=== PATIENT | female | born 1935 | race Caucasian/White ===

== ENCOUNTER 2022-03-12 09:29 | Outpatient (CLI) | payer MEDICARE, OTHER, SELFPAY ==
--- NOTE | 2022-03-12 09:45 | MR_ITS ---
WS: [id number] MRI LUMBAR SPINE NONCONTRAST TECHNIQUE: Sagittal T1, T2 and STIR imaging. Axial T1 and T2 imaging. CLINICAL INFORMATION: CHRONIC MIDLINE LOW BACK PAIN COMPARISON: None. FINDINGS: Mild lumbar curve. No acute compression. Slight anterolisthesis L3 on L4. Disc space narrowing worse L4-L5. Incidental hemangioma L3 vertebral body. L1-L2: Mild disc bulging and osteophytic ridging. Slight narrowing of the RIGHT subarticular recess. Mild facet arthropathy. RIGHT foraminal protrusion with mild RIGHT foraminal narrowing. LEFT foramen is patent. L2-L3: Mild disc bulging with moderate central canal stenosis. Impingement subarticular recess bilate rally. Moderate facet arthropathy. Small bilateral foraminal protrusions with moderate RIGHT and mild LEFT foraminal narrowing. L3-L4: Slight anterolisthesis L3 on L4. Disc bulging combination with facet arthropathy results in mo derate central canal stenosis. Impingement on the traversing L4 nerve roots bilaterally. Small LEFT f oraminal protrusion with moderate LEFT foraminal narrowing. RIGHT foramen is patent. Moderate facet a rthropathy. L4-L5: Disc osteophyte complex with endplate ridging. Slight retrolisthesis L4 on L5. Slight impingem ent traversing LEFT L5 nerve root in the subarticular recess. Mild RIGHT foraminal narrowing. Mild fa cet arthropathy. L5-S1: No significant disc bulging. Spinal canal foramen are patent. Mild facet arthropathy. Small amount of nonspecific edema in the superior S3 vertebral body may be posttraumatic or degenerat lopez versus small hemangioma. MR/MR lumbar spine wo con* [id number] IMPRESSION: 1. Mild lumbar curve. No acute compression. Grade 1 anterolisthesis L2 on L3 a nd L3 on L4. 2. Moderate central canal stenosis L2-L3 and L3-L4 due to disc bulging with fa cet arthropathy and mild ligamentum flavum flavum hypertrophy. Impingement on t he traversing L3 and L4 nerve roots bilaterally. 3. Impingement on the traversing LEFT L5 nerve root in the LEFT subarticular r ecess L4-L5. 4. Mild disc bulging L1-L2 with a shallow central protrusion and mild central canal stenosis. 5. Small foraminal protrusions at RIGHT L2-L3 and LEFT L3-L4 with impingement on the exiting RIGHT L2 and LEFT L3 nerve roots respectively. 6. Mild RIGHT L1-L2 foraminal narrowing with a small RIGHT foraminal protrusio n.
== END 2022-03-12 09:30 | disposition home or self-care (01) ==
LOC: RAD 09:40
PROVIDERS: Visit Provider Orthopaedic Surgery
DX: M48.061 Spinal stenosis, lumbar region without neurogenic claudication (principal); M54.50 Low back pain, unspecified
CPT/HCPCS: 72148

== ENCOUNTER 2022-05-01 13:06 | Outpatient (CLI) | payer MEDICARE, OTHER, SELFPAY ==
--- NOTE | 2022-05-01 13:20 | XR_ITS ---
WS: [id number] Lumbar spine with flexion, extension, and neutral lateral, 05/01/2022 Clinical Data: SPONDYLOLISTHESIS, LUMBAR REGION Comparison: None. Findings: No compression fractures are seen. Degenerative disc narrowing exists at all levels but especially at L1-L2, L2-L3 and L4-L5 with loss of the normal lordotic curvature. There is a subluxation of 0.4 cm of L3 on L4 which increases on flexion to 0.6 cm. There is limitation of motion on flexion and exten niki. There are striations in the L3 vertebral body consistent with an hemangioma. There is osteoarth ritic change of all the lumbar vertebral bodies. There are clips in the upper abdomen from surgery. There is calcification in the abdominal aorta with out an aneurysm. There is a hip arthroplasty. XR/XR lumbar spine f/e only [id number] Impression: 1. Degenerative disc narrowing at multiple levels with loss of normal lordotic curvature. 2. 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 3. Subluxation of 0.4 cm at L3-L4 which increases to 0.6 cm on flexion.
== END 2022-05-01 13:07 | disposition home or self-care (01) ==
LOC: RAD 13:07
PROVIDERS: Visit Provider Nurse Practitioner
DX: M43.16 Spondylolisthesis, lumbar region (principal)
CPT/HCPCS: 72120

== ENCOUNTER 2022-05-09 15:42 | Outpatient (CLI) | payer MEDICARE, OTHER, SELFPAY ==
--- NOTE | 2022-05-09 16:08 | XR_ITS ---
WS: [id number] Exam: XR ribs RT mn 3V w CXR1V [id number] Date/Time of Exam: 05/09/2022 4:09 PM Reason For Exam: RT. RIB FRACTURE Chest radiograph compared to the last exam 05/23/2016. No acute right rib fracture. The lungs are bilaterally clear and hyperinflated. Normal cardiomediasti nal silhouette. No pleural or pulmonary reactive changes. No pleural effusions. Advanced DJD of both shoulders. Mild lower thoracic levoscoliosis. XR/XR ribs RT mn 3V w CXR1V [id number] IMPRESSION: 1. No acute rib fracture or pneumothorax. 2. Pulmonary hyperinflation which might indicate obstructive lung disease. No a cute cardiopulmonary finding.
== END 2022-05-09 15:43 | disposition home or self-care (01) ==
LOC: RAD 15:45
PROVIDERS: PCP Family Medicine; Visit Provider Anesthesiology Pain Medicine
DX: S22.31XA Fracture of one rib, right side, initial encounter for closed fracture (principal); X58.XXXA Exposure to other specified factors, initial encounter
CPT/HCPCS: 71101

== ENCOUNTER → 2023-01-02 15:10 | Outpatient (BNVA) | payer MEDICARE, OTHER, SELFPAY | PROVIDERS: PCP Family Medicine; Visit Provider Family Medicine | DX: N39.0 Urinary tract infection, site not specified (principal) | CPT/HCPCS: 81003 ==

== ENCOUNTER → 2023-02-28 10:14 | Outpatient (BNVA) | payer MEDICARE, OTHER, SELFPAY | PROVIDERS: PCP Family Medicine; Visit Provider Family Medicine | DX: E03.9 Hypothyroidism, unspecified (principal); E78.5 Hyperlipidemia, unspecified; E11.9 Type 2 diabetes mellitus without complications; Z13.6 Encounter for screening for cardiovascular disorders | CPT/HCPCS: 80053; 80061; 83036; 84443; 85025 ==

== ENCOUNTER → 2024-04-27 10:54 | Outpatient (BNVA) | payer MEDICARE, OTHER, SELFPAY | PROVIDERS: PCP Family Medicine; Visit Provider Family Medicine | DX: R13.10 Dysphagia, unspecified (principal); K64.9 Unspecified hemorrhoids; E11.9 Type 2 diabetes mellitus without complications; I25.10 Atherosclerotic heart disease of native coronary artery without angina pectoris; Z79.899 Other long term (current) drug therapy | CPT/HCPCS: 80053; 80061; 83036; 84443; 85025 ==

== ENCOUNTER 2024-09-22 09:24 | Outpatient (CLI) | payer MEDICARE, OTHER, SELFPAY ==
--- NOTE | 2024-09-22 09:31 | XR_ITS ---
WS: [id number] XR hip BI 2V wo/w pel [id number] REASON FOR EXAM: fall FINDINGS: RIGHT HIP: Total right hip arthroplasty. Prosthetic components are intact and in proper position and alignment. Femoral shaft intact at the di stal end of the femoral prosthetic component. Superior and inferior pubic rami intact. XR/XR hip BI 2V wo/w pel [id number] IMPRESSION: Total right hip arthroplasty without acute abnormality. LEFT HIP: No acute fracture of the acetabulum and or femoral head/neck. Possible old healed fracture of the inferior pubic ramus. No acute fracture of the superior or inferior pubic ramus identified. Mild to moderate osteoarthritis. IMPRESSION: No acute abnormality of the left hip.
== END 2024-09-22 09:25 | disposition home or self-care (01) ==
PROVIDERS: PCP Family Medicine; Visit Provider Family Medicine
DX: M16.12 Unilateral primary osteoarthritis, left hip (principal)
CPT/HCPCS: 73521

== ENCOUNTER → 2025-09-27 15:02 | Outpatient (BNVA) | payer MEDICARE, OTHER, SELFPAY | PROVIDERS: PCP Family Medicine; Visit Provider Family Medicine | DX: E11.9 Type 2 diabetes mellitus without complications (principal); R13.10 Dysphagia, unspecified; I25.10 Atherosclerotic heart disease of native coronary artery without angina pectoris | CPT/HCPCS: 80053; 80061; 83036; 84443; 85025 ==

== ENCOUNTER 2025-10-06 08:55 | Outpatient (CLI) | payer MEDICARE, OTHER, SELFPAY ==
--- NOTE | 2025-10-06 | FL_ITS ---
FL upper GI w air* [id number] REASON FOR EXAM: DYSPHAGIA FLUOROSCOPY TIME: 5min [id number] # OF SPOT FILMS: Multiple TECHNIQUE: Patient was of extremely limited mobility. Patient was examined in the near upright AP and lateral projection and in the prone BERNARDO and supine positions. The swallowing of barium was monitored fluoroscopically and multiple spot films obtained. The GI tract was evaluated from the base of the tongue to the ligament of Treitz. FINDINGS: No aspiration or laryngeal vestibule penetration of contrast was identified in the cervical esophagus. No significant cricopharyngeal impingement. The esophagus demonstrated weakened primary peristalsis. There was mild dilatation of the distal esophagus with retention of contrast and intermittent esophageal esophageal reflux. There is a large hiatal hernia which also demonstrated prolonged retention of contrast. There is moderate gastroesophageal reflux. The stomach is pliable with normal mucosal folds. The pylorus duodenal bulb and duodenal sweep are unremarkable. IMPRESSION: Mild dysmotility with moderate prolonged retention of contrast with intermittent retrograde reflux to near the sternal notch. There is a large hiatal hernia which also demonstrated persistent retention of contrast. There is moderate gastroesophageal reflux. MTDD
== END 2025-10-06 08:56 | disposition home or self-care (01) ==
PROVIDERS: PCP Family Medicine; Visit Provider Family Medicine
DX: R13.10 Dysphagia, unspecified (principal); K22.89 Other specified disease of esophagus; K44.9 Diaphragmatic hernia without obstruction or gangrene; K21.9 Gastro-esophageal reflux disease without esophagitis
CPT/HCPCS: 74246